=== PATIENT | female | born 1995 | race American Indian/Alaskan Native ===

== ENCOUNTER 2016-11-25 12:08 | Emergency (ER) | payer MEDICAID ==
[2016-11-25 14:32] VITALS: BP 119/70
== END 2016-11-25 13:30 | disposition left against medical advice (07) ==
LOC: ED 12:08
DX: M53.3 Sacrococcygeal disorders, not elsewhere classified (principal); Z53.21 Procedure and treatment not carried out due to patient leaving prior to being seen by health care provider

== ENCOUNTER 2017-03-29 23:47 | Emergency (ER) | payer SELFPAY ==
--- NOTE | 2017-03-30 02:40 | XRay Report ---
FINAL REPORT PROCEDURE: XR ANKLE 3+V LT TECHNIQUE: LEFT ankle radiographs, AP and lateral views. HISTORY: pain, edema of left ankle COMPARISON: No prior studies are available for comparison. FINDINGS: Fracture (s) and/or Dislocation(s): There is a nondisplaced fracture of the base of the 5th metatarsal bone. The tibia, fibula, talus, calcaneus and tarsal bones are intact. Alignment: Normal. Joint space(s): Normal. Soft tissues: Normal. Bone mineralization: Normal. Foreign bodies: Normal. Calcaneal spurring: Normal. IMPRESSION: Nondisplaced fracture of the base of the 5th metatarsal bone..
[2017-03-30] MEDS ORDERED: TYLENOL PO ONE (04:38)
[2017-03-30] MEDS ORDERED: TYLENOL ONE (04:39)
--- NOTE | 2017-03-30 07:12 | Emergency Department Report ---
ED Lower Extremity HPI - General Chief Complaint: Extremity Injury, Lower Stated Complaint: L. FOOT INJURY Time Seen by Provider: 03/30/17 07:07 Source: patient Mode of arrival: Ambulatory Limitations: No Limitations - History of Present Illness Initial Comments: pt was running to her car when she twisted her L ankle. Pain to side of foot. No numbness. Complaint: foot injury -: Sudden, Last night Injury: Foot: Left Type of Injury: unknown Place: home Severity: moderate Severity scale (0 -10): 7 Improves With: immobilization Worsens With: weight bearing Context: running Associated Symptoms: swelling, ambulatory - Related Data Previous Rx's Medication Instructions Recorded Last Taken Type HYDROcodone/APAP 5-325 [[place] 1 each PO Q6HR PRN #20 tablet 10/24/13 Unknown Rx 5/325 mg] Sulfamethoxazole/Trimethoprim 1 each PO BID #14 tablet 10/24/13 Unknown Rx [Bactrim Ds] Acetaminophen/Codeine [Tylenol 1 tab PO Q6H PRN #12 tab 03/30/17 Unknown Rx /Codeine # 3 tab] Ibuprofen [Motrin 600 MG tab] 600 mg PO Q6H PRN #30 tablet 03/30/17 Unknown Rx Allergies Allergy/AdvReac Type Severity Reaction Status Date / Time No Known Allergies Allergy Verified 10/24/13 09:40 ED Review of Systems ROS: Stated complaint: L. FOOT INJURY Other details as noted in HPI Comment: All other systems reviewed and negative Constitutional: denies: chills, fever Eyes: denies: eye pain, eye discharge, vision change ENT: denies: ear pain, throat pain Respiratory: denies: cough, shortness of breath, wheezing Cardiovascular: denies: chest pain, palpitations Endocrine: no symptoms reported Gastrointestinal: denies: abdominal pain, nausea, diarrhea Genitourinary: denies: urgency, dysuria, discharge Musculoskeletal: as per HPI. denies: back pain, joint swelling, arthralgia Skin: denies: rash, lesions Neurological: denies: headache, weakness, paresthesias Psychiatric: denies: anxiety, depression Hematological/Lymphatic: denies: easy bleeding, easy bruising ED Past Medical Hx - Past Medical History Previous Medical History?: No - Surgical History Past Surgical History?: No - Social History Smoking Status: Current Every Day Smoker Substance Use Type: None - Medications Home Medications: Home Medications Medication Instructions Recorded Confirmed Last Taken Type HYDROcodone/APAP 5-325 [[place] 1 each PO Q6HR PRN #20 tablet 10/24/13 Unknown Rx 5/325 mg] Sulfamethoxazole/Trimethoprim 1 each PO BID #14 tablet 10/24/13 Unknown Rx [Bactrim Ds] Acetaminophen/Codeine [Tylenol 1 tab PO Q6H PRN #12 tab 03/30/17 Unknown Rx /Codeine # 3 tab] Ibuprofen [Motrin 600 MG tab] 600 mg PO Q6H PRN #30 tablet 03/30/17 Unknown Rx ED Physical Exam - General Limitations: No Limitations General appearance: alert, in no apparent distress - Head Head exam: Present: atraumatic, normocephalic - Eye Eye exam: Present: normal appearance - ENT ENT exam: Present: mucous membranes moist - Neck Neck exam: Present: normal inspection - Respiratory Respiratory exam: Present: normal lung sounds bilaterally. Absent: respiratory distress - Cardiovascular Cardiovascular Exam: Present: regular rate, normal rhythm. Absent: systolic murmur, diastolic murmur, rubs, gallop - GI/Abdominal GI/Abdominal exam: Present: soft, normal bowel sounds - Extremities Exam Extremities exam: Present: other (mild swelling, tenderness base of 5th metatarsal. CMS intact, ankle is normal. ) - Back Exam Back exam: Present: normal inspection - Neurological Exam Neurological exam: Present: alert, oriented X3 - Psychiatric Psychiatric exam: Present: normal affect, normal mood - Skin Skin exam: Present: warm, dry, intact, normal color. Absent: rash ED Course Vital Signs 03/30/17 03/30/17 00:34 04:34 Temperature 98.9 F 98.6 F Pulse Rate 101 H 96 H Respiratory 18 Rate Blood Pressure 119/71 129/70 O2 Sat by Pulse 100 100 Oximetry - Reevaluation(s) Reevaluation #1: 03/30/17 07:10 Pt is in NAD and stable for d/c. ED Lower Extremity MDM - Radiology Data Radiology results: report reviewed base of 5th MT fx - Medical Decision Making Will splint metatarsal fx and have her follow up. - Differential Diagnosis fx, sprain, contusion Critical care attestation.: If time is entered above; I have spent that time in minutes in the direct care of this critically ill patient, excluding procedure time. ED Disposition Clinical Impression: Fracture of fifth metatarsal bone of left foot Qualifiers: Encounter type: initial encounter Fracture type: closed Fracture alignment: nondisplaced Qualified Code(s): S92.355A - Nondisplaced fracture of fifth metatarsal bone, left foot, initial encounter for closed fracture Disposition: TO HOME OR SELFCARE Is pt being admited?: No Condition: Good Instructions: Foot Fracture in Adults (ED) Prescriptions: Acetaminophen/Codeine [Tylenol /Codeine # 3 tab] 1 tab PO Q6H PRN #12 tab PRN Reason: Pain Ibuprofen [Motrin 600 MG tab] 600 mg PO Q6H PRN #30 tablet PRN Reason: Pain Referrals: PRIMARY CAREMD [Primary Care Provider] - 3-5 Days RADHA ROSEN MD [Staff Physician] - 3-5 Days Time of Disposition: 07:12
[2017-03-30 08:04] VITALS: BP 116/74
== END 2017-03-30 08:07 | disposition home or self-care (01) ==
LOC: ED 23:47
DX: S92.355A Nondisplaced fracture of fifth metatarsal bone, left foot, initial encounter for closed fracture (principal); F17.200 Nicotine dependence, unspecified, uncomplicated; X58.XXXA Exposure to other specified factors, initial encounter; Y93.02 Activity, running; Y99.8 Other external cause status; Y92.098 Other place in other non-institutional residence as the place of occurrence of the external cause

== ENCOUNTER 2017-04-09 21:15 | Emergency (ER) | payer OTHER ==
[2017-04-09 21:22] VITALS: BP 138/70
[2017-04-09] MEDS ORDERED: TORADOL IM ONE (23:33)
--- NOTE | 2017-04-10 00:13 | Emergency Department Report ---
ED Extremity Problem HPI - General Chief complaint: Extremity Injury, Lower Stated complaint: FX PAIN Time Seen by Provider: 04/09/17 23:19 Source: patient Mode of arrival: Ambulatory Limitations: No Limitations - History of Present Illness Initial comments: 21-year-old female in no significant Past medical history presents to the hospital complaining of continued left foot pain. Patient was seen here on March 30. Diagnosed with a fifth nondisplaced metatarsal fracture. Patient received a posterior splint common prescribed Tylenol 3, and ibuprofen and instructed to follow up with orthopedic surgeon. Patient cannot afford to follow up with orthopedic surgeon and this is not a Workmen's Compensation case. This complains of continue / aching foot pain that is constant. Patient ran out of her prescribed pain medication. - Related Data Previous Rx's Medication Instructions Recorded Last Taken Type HYDROcodone/APAP 5-325 [[place] 1 each PO Q6HR PRN #20 tablet 10/24/13 Unknown Rx 5/325 mg] Sulfamethoxazole/Trimethoprim 1 each PO BID #14 tablet 10/24/13 Unknown Rx [Bactrim Ds] Acetaminophen/Codeine [Tylenol 1 tab PO Q6H PRN #15 tab 04/10/17 Unknown Rx /Codeine # 3 tab] Ibuprofen [Motrin 600 MG tab] 600 mg PO Q6H PRN #30 tablet 04/10/17 Unknown Rx Allergies Allergy/AdvReac Type Severity Reaction Status Date / Time No Known Allergies Allergy Verified 04/09/17 21:20 ED Review of Systems ROS: Stated complaint: FX PAIN Other details as noted in HPI Comment: All other systems reviewed and negative Other: Constitutional: No fevers chills or weight loss Eyes: No eye pain visual changes or discharge ENT: No ear pain or throat pain Neck: Denies pain Respiratory: Denies cough wheezing shortness of breath Cardiovascular: Denies chest pain, palpitations, syncope GI: Denies abdominal pain, nausea, vomiting, diarrhea : Denies dysuria Musculoskeletal: as per hpi Skin: Denies rash, lesions, erythema Neurologic: Denies headache, numbness, weakness Psychiatric: Denies suicidal ideation, hallucinations Hematological/lymphatic: Denies easy bruising, lymphadenopathy ED Past Medical Hx - Social History Smoking Status: Current Every Day Smoker Substance Use Type: None - Medications Home Medications: Home Medications Medication Instructions Recorded Confirmed Last Taken Type HYDROcodone/APAP 5-325 [[place] 1 each PO Q6HR PRN #20 tablet 10/24/13 Unknown Rx 5/325 mg] Sulfamethoxazole/Trimethoprim 1 each PO BID #14 tablet 10/24/13 Unknown Rx [Bactrim Ds] Acetaminophen/Codeine [Tylenol 1 tab PO Q6H PRN #15 tab 04/10/17 Unknown Rx /Codeine # 3 tab] Ibuprofen [Motrin 600 MG tab] 600 mg PO Q6H PRN #30 tablet 04/10/17 Unknown Rx ED Physical Exam - General Limitations: No Limitations - Other Other exam information: General: No limitations, patient is alert in no acute distress Head exam: Atraumatic, normocephalic Eyes exam: Normal appearance ENT: Moist mucous membrane, normal oropharynx Neck exam: Normal inspection, full range of motion, no meningismus nontender Respiratory exam: Clear to auscultation bilateral, no wheezes, rales, crackles Cardiovascular: Normal rate and rhythm, normal heart sounds Abdomen: Soft, nondistended, and nontender, with normal bowel sounds, no rebound, or guarding Extremity: Left posterior foot splint intact. Cap refill less than 2 seconds Back: Normal Inspection, full range of motion, no tenderness Neurologic: Alert, oriented x3, cranial nerves intact, no motor or sensory deficit Psychiatric: normal affect, normal mood Skin: Warm, dry, intact ED Course Vital Signs 04/09/17 21:20 Temperature 98.8 F Pulse Rate 98 H Respiratory 18 Rate Blood Pressure 138/70 O2 Sat by Pulse 98 Oximetry - Reevaluation(s) Reevaluation #1: 04/10/17 00:13 Patient received Toradol for pain since she intends to drive home ED Medical Decision Making - Medical Decision Making She has a known foot fracture. Does not report any new injury. Returns because she ran out of pain medication has not been able to follow-up with orthopedic. Patient will be given additional medication for pain and encouraged to continue to follow up with orthopedic - Differential Diagnosis foot fracture Critical Care Time: No Critical care attestation.: If time is entered above; I have spent that time in minutes in the direct care of this critically ill patient, excluding procedure time. ED Disposition Clinical Impression: Fracture of fifth metatarsal bone of left foot Qualifiers: Encounter type: subsequent encounter Disposition: - TO HOME OR SELFCARE Is pt being admited?: No Does the pt Need Aspirin: No Condition: Stable Instructions: Foot Fracture in Adults (ED) Additional Instructions: Take the medication as prescribed. Return if symptoms worsen. Please continue to call around to find orthopedic surgeon for follow up. Prescriptions: Acetaminophen/Codeine [Tylenol /Codeine # 3 tab] 1 tab PO Q6H PRN #15 tab PRN Reason: Pain Ibuprofen [Motrin 600 MG tab] 600 mg PO Q6H PRN #30 tablet PRN Reason: Pain Referrals: RADHA ROSEN MD [Staff Physician] - 3-5 Days Time of Disposition: 00:15
== END 2017-04-10 00:30 | disposition home or self-care (01) ==
LOC: ED 21:15
DX: S92.352D Displaced fracture of fifth metatarsal bone, left foot, subsequent encounter for fracture with routine healing (principal); F17.200 Nicotine dependence, unspecified, uncomplicated; X58.XXXD Exposure to other specified factors, subsequent encounter
CPT/HCPCS: 96372; 99282; J1885